=== PATIENT | female | born 1940 | race Caucasian/White ===

== ENCOUNTER 2016-12-19 13:14 | Emergency (ER) | payer OTHER ==
[2016-12-19 13:34] VITALS: TEMP 97.7
--- NOTE | 2016-12-19 13:41 | EDPHY ---
H & P Time Seen by Provider: 12/19/16 13:40 HPI/ROS: CHIEF COMPLAINT: Chest pain HISTORY OF PRESENT ILLNESS: This 76-year-old woman presents with substernal chest pain which she says started last night. She says her sternum hurts and it is worse with deep breathing. Does not radiate. Not exertional or associated with nausea or vomiting. Does not radiate. Patient had left shoulder rotator cuff surgery at [facility] on December 16 of this year. She has had some significant left shoulder pain since and took 20 oxycodone since she was discharged. REVIEW OF SYSTEMS: Eye: no change in vision ENT: no sore throat Cardiac: HPI, no syncope Pulmonary: no cough or SOB Abdomen: no vomiting, diarrhea, abdominal pain Musculoskeletal: Left shoulder pain after surgery, in a sling. Skin: no rash Neuro: no headache Constitutional: no fever : no urinary symptoms A comprehensive 10 point review of systems is otherwise negative aside from elements mentioned in the history of present illness. The friend who is with her also says that her words been garbled and she has been a little confused over the last 24 hours, concerned that it is related to her pain medication. PAST MEDICAL HISTORY: The includes left rotator cuff surgery, breast augmentation, tonsillectomy, , hypertension. Social history: [facility] patient, here with a friend of hers who has known her since this friend was 16 years old. General Appearance: Alert and conversant, cooperative. Eyes: No scleral icterus. ENT, Mouth: Normal mucous membranes. Respiratory: Normal respiratory effort, breath sounds equal, lungs are clear to auscultation. Cardiovascular: Regular rate and rhythm. Gastrointestinal: Abdomen is soft and non tender. Neurological: Alert and follows commands. Speech is fluent now. Face symmetric, normal sensation in all extremities. Can move the fingers of both hands and ambulatory to the room. Skin: Warm and dry, no rashes. Dressing taken down to examine left shoulder incisions which are clean dry and intact. Musculoskeletal: Left arm in a sling with an abduction pillow. Psychiatric: Not agitated. Emergency Department course/MDM: The plan for EKG, chest x-ray, troponin and D-dimer. Lower pretest suspicion for pulmonary embolism given normal oxygen saturation and heart rate, upper extremity recent surgery. Chest CT discussed and consented after D-dimer comes back greater than 3. 1602: Bilateral subsegmental pulmonary emboli per Dr. Molina on chest CT. 1610: Results discussed. Lovenox 1mg/kg subcutaneously. Anticoagulation discussed and consented. It is my clinical impression that given the overall picture that she is stable for transfer if needed. Discussed with [facility] at this time. Discussed with primo Pedersen's brother, at her request 1632. Case discussed with the [facility] physician Dr. Freedman at 1610. The accepting physician is Dr. Palumbo. Risks, benefits, and alternatives discussed with the patient and consented. The patient will be transferred to [facility] via ALS because she is a [facility] patient, in stable condition. This is a patient requested transfer. Constitutional: Initial Vital Signs Temperature (C) 36.5 C 12/19/16 13:30 Heart Rate 81 12/19/16 13:30 Respiratory Rate 16 12/19/16 13:30 Blood Pressure 135/77 H 12/19/16 13:30 O2 Sat (%) 93 12/19/16 13:30 O2 Delivery Mode Room Air Allergies/Adverse Reactions: Sulfa (Sulfonamide Antibiotics) Allergy (Verified 12/19/16 13:34) Home Medications: Medication Instructions Recorded Adderall 10 mg Tablet 12/19/16 Hormone Replacement 12/19/16 Neurontin 400 MG (*) 12/19/16 oxyCODONE CR [Oxycontin] 12/19/16 Medical Decision Making - Diagnostics EKG Interpretation: 12-lead EKG interpreted by me; official reading is in trace master. My interpretation is sinus rhythm rate 83 no acute ischemic changes. Imaging Results: Imaging Impressions Chest X-Ray 12/19/16 13:52 Impression: Left basilar consolidation with pleural fluid. Differential diagnosis is pneumonia versus pulmonary infarction. Chest/Thorax CTA 12/19/16 14:32 Impression: Lateral scattered subsegmental pulmonary emboli. Results called and discussed with DARREN REESE, at 12/19/2016 16:00 General information for patients regarding this examination can be found at [email or web address]. If you have questions or comments about this report, please contact me at (hospital) or [phone] (cell). Differential Diagnosis: Differential diagnosis considered for chest pain including but not limited to myocardial ischemia, aortic dissection, pericarditis, pulmonary embolus, chest wall pain, pleural inflammation and pulmonary infectious causes. Consult/Admit Bed Type: Jay Freedman [facility] at 1631 Critical Care Time: Critical care time spent by me, Dr. Reese, exclusively with the care of this patient was 30 minutes, exclusive of PA or JAI ALAI PLAYER time and exclusive of separate procedures. The organ system at risk was cardiopulmonary and I ordered diagnostic blood tests and imaging studies, initiation of anticoagulation heparin therapy; to stabilize the patient and prevent worsening of the patient' s condition. - Data Points Laboratory Results: Laboratory Results 12/19/16 14:00 12/19/16 14:00 12/19/16 12/19/16 12/19/16 14:00 14:00 14:00 WBC 11.45 10^3/uL H 10^3/uL (3.80-9.50) RBC 4.45 10^6/uL 10^6/uL (4.18-5.33) Hgb 13.9 g/dL g/dL (12.6-16.3) Hct 42.5 % % (38.0-47.0) MCV 95.5 fL fL (81.5-99.8) MCH 31.2 pg pg (27.9-34.1) MCHC 32.7 g/dL g/dL (32.4-36.7) RDW 14.3 % % (11.5-15.2) Plt Count 231 10^3/uL 10^3/uL (150-400) MPV 11.2 fL fL (8.7-11.7) Neut % (Auto) 75.4 % H % (39.3-74.2) Lymph % (Auto) 11.4 % L % (15.0-45.0) Adams % (Auto) 12.1 % % (4.5-13.0) Eos % (Auto) 0.3 % L % (0.6-7.6) Baso % (Auto) 0.3 % % (0.3-1.7) Nucleat RBC Rel Count 0.0 % % (0.0-0.2) Absolute Neuts (auto) 8.64 10^3/uL H 10^3/uL (1.70-6.50) Absolute Lymphs (auto) 1.30 10^3/uL 10^3/uL (1.00-3.00) Absolute Monos (auto) 1.38 10^3/uL H 10^3/uL (0.30-0.80) Absolute Eos (auto) 0.03 10^3/uL 10^3/uL (0.03-0.40) Absolute Basos (auto) 0.04 10^3/uL 10^3/uL (0.02-0.10) Absolute Nucleated RBC 0.00 10^3/uL 10^3/uL (0-0.01) Immature Gran % 0.5 % % (0.0-1.1) Immature Gran # 0.06 10^3/uL 10^3/uL (0.00-0.10) D-Dimer 3.60 ug/mLFEU H ug/mLFEU (0.00-0.50) Sodium 134 mEq/L mEq/L (134-144) Potassium 4.3 mEq/L mEq/L (3.5-5.2) Chloride 99 mEq/L mEq/L (97-110) Carbon Dioxide 23 mEq/l mEq/l (22-31) Anion Gap 12 mEq/L mEq/L (8-16) BUN 13 mg/dL mg/dL (7-23) Creatinine 1.0 mg/dL mg/dL (0.6-1.0) Estimated GFR 54 Glucose 84 mg/dL mg/dL (70-100) Calcium 8.7 mg/dL mg/dL (8.5-10.4) Troponin I < 0.012 ng/mL ng/mL (0-0.034) Medications Given: Discontinued Medications Enoxaparin Sodium (Lovenox) 60 mg SC EDNOW ONE Stop: 12/19/16 16:15 Last Admin: 12/19/16 16:40 Dose: 60 mg Departure - Departure Disposition: Acute Care Hospital Not [facility] Clinical Impression: Chest pain Qualifiers: Chest pain type: unspecified Qualified Code(s): R07.9 - Chest pain, unspecified Pulmonary embolism Qualifiers: Pulmonary embolism type: other Chronicity: acute Acute cor pulmonale presence: without acute cor pulmonale Qualified Code(s): I26.99 - Other pulmonary embolism without acute cor pulmonale Condition: Good Instructions: Chest Pain (ED) Referrals: [facility] ([facility],. [Edm Groups for Call Sched] - As per Instructions [facility] ,. [Edm Groups for Call Sched] - As per Instructions
--- NOTE | 2016-12-19 13:55 | CPEKG ---
Heart Rate: 83 RR Interval: 723 P-R Interval: 168 QRSD Interval: 82 QT Interval: 356 QTC Interval: 419 P Dun[place]: 76 QRS [place]: 25 T Wave [place]: 46 EKG Severity - NORMAL ECG - EKG Impression: SINUS RHYTHM Electronically Signed By: Frank Madrigal 19-Dec-2016 13:56:48
[2016-12-19 14:06] LABS: % IMMATURE GRANULYOCYTES 0.5 % (0.0-1.1); ABSOLUTE IMMATURE GRANULOCYTES 0.06 10^3/uL (0.00-0.10); ADD DIFF? NO; ADD MORPH? NO; ADD SCAN? NO; ATYPICAL LYMPHOCYTE FLAG 10 (0-99); FRAGMENT RBC FLAG 0 (0-99); HEMATOCRIT 42.5 % (38.0-47.0); HEMOGLOBIN 13.9 g/dL (12.6-16.3); LEFT SHIFT FLG 0 (0-99); LIPEMIA HEMOLYSIS FLAG 80 (0-99); MEAN CELL HEMOGLOBIN 31.2 pg (27.9-34.1); MEAN CELL HEMOGLOBIN CONCENTR. 32.7 g/dL (32.4-36.7); MEAN CELL VOLUME 95.5 fL (81.5-99.8); MEAN PLATELET VOLUME 11.2 fL (8.7-11.7); PLATELET CLUMPS FLAG 90 (0-99); PLATELET COUNT 231 10^3/uL (150-400); RED BLOOD CELL COUNT 4.45 10^6/uL (4.18-5.33); RED CELL DISTRIBUTION WIDTH 14.3 % (11.5-15.2)
[2016-12-19 14:26] LABS: ANION GAP 12 mEq/L (8-16); CALCIUM 8.7 mg/dL (8.5-10.4); CARBON DIOXIDE 23 mEq/l (22-31); CHLORIDE 99 mEq/L (97-110); GLOMERULAR FILTRATION RATE 54; GLUCOSE 84 mg/dL (70-100); POTASSIUM 4.3 mEq/L (3.5-5.2); SODIUM 134 mEq/L (134-144)
[2016-12-19 14:38] LABS: TROPONIN I < 0.012 ng/mL (0-0.034)
[2016-12-19] MEDS ORDERED: IOPAMIDOL (ISOVUE 370) 100 ML BTL IV ONE (14:48)
[2016-12-19] MEDS ORDERED: ENOXAPARIN 60 MG/0.6 ML SYR SC ONE (16:14)
[2016-12-19 16:15] VITALS: BP 132/70; PULSE 85; RESP 14; O2SAT 94
== END 2016-12-19 17:44 | disposition short-term general hospital (02) ==
DX: I26.99 Other pulmonary embolism without acute cor pulmonale (principal); I10 Essential (primary) hypertension
CPT/HCPCS: 71020; 71275; 93005; 96372; 99291; J1650; Q9967